=== PATIENT | male | born 1970 | race Caucasian/White ===

== ENCOUNTER 2018-12-27 21:47 | Emergency (ER) | payer OTHER ==
[2018-12-27 21:54] VITALS: BP 136/82; PULSE 71; TEMP 97.7; BMI 27.8
[2018-12-27] MEDS ORDERED: DIPHTH,PERTUSS(ACELL),TET 0.5 ML DISP.SYRIN IM ONE ×2 (22:34→22:36)
--- NOTE | 2018-12-27 22:40 | PDOC ---
History of Present Illness - General Chief Complaint: Laceration Stated Complaint: BLEEDING Time Seen by Provider: 12/27/18 22:11 History Source: Patient Exam Limitations: Clinical Condition - History of Present Illness Initial Comments: 12/27/18 22:35 Patient presented for evaluation of laceration to tip of right index finger after accidentally hitting finger on a knife at home. Patient reported reported and pressure on the wound but wound keep bleeding. Patient does not recall last tetanus vaccine. Timing/Duration: 1-3 hours Past History - Past Medical History Allergies/Adverse Reactions: Allergies Allergy/AdvReac Type Severity Reaction Status Date / Time No Known Allergies Allergy Verified 07/28/15 06:51 Home Medications: Ambulatory Orders Cephalexin Monohydrate [Keflex -] 500 mg PO BID 7 Days #14 capsule 12/27/18 Ibuprofen 800 mg PO Q8H PRN #20 tablet 12/27/18 - Suicide/Smoking/Psychosocial Hx Smoking History: Unknown if ever smoked Hx Alcohol Use: Yes (2-3 beers/day) Drug/Substance Use Hx: No Substance Use Type: Alcohol Review of Systems - Review of Systems Able to Perform ROS?: Yes Is the patient limited Kiswahili proficient: No Constitutional: No: Weakness Respiratory: No: Symptoms reported Cardiac (ROS): No: Symptoms Reported ABD/GI: No: Symptoms Reported Musculoskeletal: Yes: See HPI, Muscle Pain (pain to tip of right index finger) Integumentary: Yes: See HPI, Other (laceration to right index finger) All Other Systems: Reviewed and Negative *Physical Exam - Vital Signs Last Vital Signs Temp Pulse Resp BP Pulse Ox 97.7 F 71 20 136/82 99 12/27/18 21:51 12/27/18 21:51 12/27/18 21:51 12/27/18 21:51 12/27/18 21:51 - Physical Exam Comments: 12/27/18 22:36 GENERAL: Well developed, well nourished. Awake and alert. No acute distress. NECK: Supple. Full ROM. CARDIOVASCULAR: Regular rate and rhythm. No murmurs, rubs, or gallops. Distal pulses are 2+ and symmetric. PULMONARY: No evidence of respiratory distress. Lungs clear to auscultation bilaterally. No wheezing, rales or rhonchi. MUSCULOSKELETAL Normal range of motion at all joints. SKIN: Warm and dry. Normal capillary refill. 2cm laceration with flap to distal plantar aspect of distal phalange of right index finger with minimal bleeding NEUROLOGICAL: Alert, awake, appropriate. Gait is normal without ataxia. PSYCHIATRIC: Cooperative. Good eye contact. Appropriate mood General Appearance: Yes: Nourished, Appropriately Dressed, Mild Distress Moderate Sedation - Procedure Monitoring Vital Signs: Procedure Monitoring Vital Signs Temperature 97.7 F 12/27/18 21:51 Pulse Rate 71 12/27/18 21:51 Respiratory Rate 20 12/27/18 21:51 Blood Pressure 136/82 12/27/18 21:51 O2 Sat by Pulse Oximetry (%) 99 12/27/18 21:51 Procedures - Laceration/Wound Repair Right Anterior Distal Plantar Finger 2nd digit Wound Length: to 2.5 cm (2cm) Wound Explored: no foreign body present Wound's Depth, Shape: flap Irrigated w/ Saline: Yes Betadine Prep: Yes Wound Repaired With: Dermabond Layer Closure: No Sterile Dressing Applied: Yes Splint Applied: Yes Sling Applied: No Medical Decision Making - Medical Decision Making 12/27/18 22:38 Patient with no significant past medical history present with laceration to right index finger with a knife at home. Patient does not recall last tetanus vaccine. Exam significant for 2cm laceration with flap to distal plantar aspect of distal phalange of right index finger with minimal bleeding.Wound cleaned with Betadine and closed with Dermabond. Bacitracin applied to wound. Right index finger wrapped with finger protective gauze. Finger splints applied to right index finger. Patient is stable for discharge on Keflex antibiotics for infection prophylaxis with follow-up in 48 hours for wound check. Tetanus vaccine given. *DC/Admit/Observation/Transfer Diagnosis at time of Disposition: Laceration of right index finger w/o foreign body w/o damage to nail Qualifiers: Encounter type: initial encounter Qualified Code(s): S61.210A - Laceration without foreign body of right index finger without damage to nail, initial encounter - Discharge Dispostion Disposition: HOME Condition at time of disposition: Stable Decision to Admit order: No - Prescriptions Prescriptions: Cephalexin Monohydrate [Keflex -] 500 mg PO BID 7 Days #14 capsule Ibuprofen 800 mg PO Q8H PRN #20 tablet PRN Reason: pain - Referrals - Patient Instructions Printed Discharge Instructions: DI for Laceration Repair Additional Instructions: Take medications as prescribed. Come back in 2 days for wound check. Keep wound dry. - Post Discharge Activity
== END 2018-12-27 22:49 | disposition home or self-care (01) ==
LOC: JERFT 21:47
PROC: 3E0234Z Introduction of Serum, Toxoid and Vaccine into Muscle, Percutaneous Approach (ICD-10-PCS; principal; 2018-12-27)
PROC: 0HQFXZZ Repair Right Hand Skin, External Approach (ICD-10-PCS; 2018-12-27)
DX: S61.210A Laceration without foreign body of right index finger without damage to nail, initial encounter (principal); W26.0XXA Contact with knife, initial encounter; Y93.G1 Activity, food preparation and clean up; Y92.89 Other specified places as the place of occurrence of the external cause; Y99.8 Other external cause status
CPT/HCPCS: 12001; 90471; 90715; 99281-25